=== PATIENT | female | born 1980 | race Hispanic/Latino ===

== ENCOUNTER 2018-08-19 12:34 | Emergency (ER) | payer OTHER ==
[2018-08-19] MEDS ORDERED: NAPROXEN 500 MG TABLET ONE (14:01)
[2018-08-19] MEDS ORDERED: CYCLOBENZAPRINE HCL 10 MG TABLET ONE (14:01)
== END 2018-08-19 14:56 | disposition home or self-care (01) ==
LOC: EDH 12:34
DX: S16.1XXA Strain of muscle, fascia and tendon at neck level, initial encounter (principal); V59.49XA Driver of pick-up truck or van injured in collision with other motor vehicles in traffic accident, initial encounter; Y93.89 Activity, other specified; Y92.89 Other specified places as the place of occurrence of the external cause; Y99.8 Other external cause status